=== PATIENT | male | born 1955 ===

== ENCOUNTER 2019-02-23 22:16 | Emergency (ER) | payer MEDICARE ==
[2019-02-23] MEDS ORDERED: Proparacaine 0.5% Opth 15 ML BOT ONE (22:29)
[2019-02-23] MEDS ORDERED: Fluorescein Opthalmic Strip ONE (22:29)
== END 2019-02-23 23:18 | disposition home or self-care (01) ==
LOC: SCSER 22:16
DX: T65.891A Toxic effect of other specified substances, accidental (unintentional), initial encounter (principal); H57.89 Other specified disorders of eye and adnexa; I10 Essential (primary) hypertension; E03.9 Hypothyroidism, unspecified; E78.5 Hyperlipidemia, unspecified; Z87.891 Personal history of nicotine dependence; Z79.899 Other long term (current) drug therapy
CPT/HCPCS: 99282